=== PATIENT | male | born 1990 | race Caucasian/White ===

== ENCOUNTER 2019-11-17 07:12 | Emergency (ER) | payer OTHER ==
[~2019-11-17] VITALS: Ht 180.3 cm; Wt 91.0 kg
[2019-11-17] MEDS ORDERED: ACETAMINOPHEN 325MG TABLET PO ONE (08:15)
[2019-11-17] MEDS ORDERED: TETANUS, DIPHTHERIA, PERTUSSIS VAC/PF 0.5ML (>7YR OLD) IM ONE (08:15)
[2019-11-17] MEDS ORDERED: LIDOCAINE HCL/EPINEPHRINE 1%-EPI 1:100,000 30 ML VIAL INFIL ONE (10:00)
[2019-11-17] MEDS ORDERED: LIDOCAINE HCL/EPINEPHRINE 1%-EPI 1:100,000 20 ML VIAL INFIL NR (10:20)
[2019-11-17 12:04] VITALS: BP 123/77
== END 2019-11-17 12:16 | disposition home or self-care (01) ==
LOC: ER 07:12
DX: S01.01XA Laceration without foreign body of scalp, initial encounter (principal); Z96.659 Presence of unspecified artificial knee joint; Z98.890 Other specified postprocedural states; V29.88XA Motorcycle rider (driver) (passenger) injured in other specified transport accidents, initial encounter; Y93.89 Activity, other specified; Y92.89 Other specified places as the place of occurrence of the external cause; Y99.8 Other external cause status
CPT/HCPCS: 12002; 70450; 72125; 90471; 90715; 99285; J3490; 99283

== ENCOUNTER 2019-11-26 09:53 | Emergency (ER) | payer MEDICAID, OTHER ==
[~2019-11-26] VITALS: Ht 180.3 cm; Wt 90.0 kg
[2019-11-26 11:03] VITALS: BP 143/82
== END 2019-11-26 11:03 | disposition home or self-care (01) ==
LOC: ER 09:53
DX: S01.01XD Laceration without foreign body of scalp, subsequent encounter (principal); X58.XXXD Exposure to other specified factors, subsequent encounter
CPT/HCPCS: 99281